=== PATIENT | male | born 1930 | race Caucasian/White ===

== ENCOUNTER 2017-05-19 14:35 | Emergency (ER) | payer OTHER ==
[~2017-05-19] VITALS: Ht 182.9 cm; Wt 81.7 kg
[~2017-05-19 14:35] MED LIST: ASPIRIN EC81 M1 PO; AZITHROMYCIN 2250 MG PO; CARDURA XL4 MG PO; CARDURA XL8 MG PO; CARDURA4 MG PO; CARDURA8 MG PO; CLONIDINE HCL0.3 M2 PO; ELIQUIS5 MG PO; HYDROCODONE-AP1 EAC6 PO; KEFLEX250 MG PO; KEFLEX500 MG PO; MEDROL DOSPAK21 TAB PO; METOPROLOL SUCC25 M1 PO; MOTION RELIEF25 MG PO; MUCINEX600 MG PO; NIZORAL120 ML; NORVASC 5 MG TAB5 MG PO; PHENERGAN-CODE120 ML PO; PROSCAR 5MG TABL5 M1 PO; SINEMET 25-1001 EAC1 PO; TIMOLOL MA0.25 %/52 OPHTHALMIC; TRAVATAN 0.004%5 ML OP; TRAVATAN Z5 ML OPHTHALMIC; VENTOLIN HFA 1818 GM INH
[2017-05-19 15:08] VITALS: BP 143/99
== END 2017-05-19 15:09 | disposition home or self-care (01) ==
LOC: M.ERS 14:35
DX: S41.011A Laceration without foreign body of right shoulder, initial encounter (principal); I48.91 Unspecified atrial fibrillation; Z88.0 Allergy status to penicillin; W01.198A Fall on same level from slipping, tripping and stumbling with subsequent striking against other object, initial encounter; Y93.89 Activity, other specified; Y92.89 Other specified places as the place of occurrence of the external cause; Y99.8 Other external cause status